=== PATIENT | female | born 1970 | race Caucasian/White ===

== ENCOUNTER 2020-04-07 18:03 | Emergency (ER) | payer SELFPAY ==
[2020-04-07 18:09] VITALS: BP 137/96; PULSE 103; RESP 18; TEMP 36.7; O2SAT 99; BMI 39.4
--- NOTE | 2020-04-07 18:09 | XRR_ITS ---
PROCEDURE INFORMATION: Exam: XR Chest, 2 Views Exam date and time: 04/07/2020 6:24 PM Age: 50 years old Clinical indication: Left-sided chest pain; Additional info: Cp TECHNIQUE: Imaging protocol: XR of the chest Views: 2 views. COMPARISON: CR Chest 1 [place] [id number] 01/07/2019 11:32 AM FINDINGS: The lungs are clear of infiltrate. There are no pleural effusions or pneumothorax. The heart size and pulmonary vascularity are normal. XR/XR chest 2V* [id number] IMPRESSION: No active disease.
--- NOTE | 2020-04-07 18:09 | ECG_ITS ---
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 Measurements Intervals [place] Rate: 96 P: 27 [place]: 149 QRS: -6 QRSD: 74 T: 29 QT: 317 QTc: 402 Interpretive Statements SINUS RHYTHM LOW QRS VOLTAGE IN PRECORDIAL LEADS [QRS DEFLECTION < 1.0 mV IN CHEST LEADS] PATTERN CONSISTENT WITH PULMONARY DISEASE Compared to ECG 01/07/2019 14:02:21 No significant changes Electronically Signed On 04-08-2020 10:53:55 CATTLE DIPPER by Kevin Montoya M.D. [id number] f
[2020-04-07 19:03] VITALS: BP 144/94; PULSE 80; RESP 17; O2SAT 98
[2020-04-07 19:24] LABS: Basophils % 0.5 %; Eosinophils # 0.1 10^3/uL (0.0-0.8); Eosinophils % 0.9 %; Hematocrit 43.5 % (37.0-47.0); Hemoglobin 14.3 g/dL (11.5-15.3); Lymphocytes # 1.6 10^3/uL (0.8-4.8); Lymphocytes % 28.3 %; Mean Corpuscular HGB Conc 32.9 g/dL (30.0-36.0); Mean Corpuscular Hemoglobin 29.4 pg (28.0-34.0); Mean Corpuscular Volume 89.5 fL (81-99); Mean Platelet Volume 11.6 fL (7.4-10.4); Monocytes # 0.3 10^3/uL (0.2-0.9); Neutrophils # 3.65 10^3/uL (1.8-7.7); Neutrophils % 65.1 %; Nucleated Red Blood Cells % 0 %; Platelet Count 280 10^3/cmm (130-400); Red Blood Count 4.86 10^6/uL (4.1-5.3); Red Cell Distribution Width 12.4 % (12.1-15.1); White Blood Count 5.6 10^3/uL (4.0-10.0)
[2020-04-07 19:39] LABS: Alanine Aminotransferase 24 U/L (0-33); Albumin Level 4.2 g/dL (3.5-5.2); Alkaline Phosphatase 95 IU/L (35-105); Anion Gap 13.9 (5-19); Aspartate Amino Transferase 14 U/L (0-32); Blood Urea Nitrogen 6 mg/dL (6-20); Calcium 9.6 mg/dL (8.5-10.5); Carbon Dioxide 27 mmol/L (22-29); Chloride 102 mmol/L (98-107); Globulin 2.9 g/dL (1.3-4.6); Glomerular Filtration Rate 106.7 mL/min (90-130); Glucose 101 mg/dL (65-115); Osmolality Calculated 286 mOsm/kg (285-295); Potassium 3.9 mmol/L (3.5-5.1); Sodium 139 mmol/L (136-145); Total Bilirubin 0.5 mg/dL (0.15-1.2); Total Protein 7.1 g/dL (6.6-8.7)
[2020-04-07 19:44] LABS: Troponin T (5th) Once 6 ng/L (0-10)
--- NOTE | 2020-04-07 19:46 | W.ED.CHESTPA ---
HPI - Chest Pain General: Chief Complaint: Chest Pain Stated Complaint: poss heart attack Time Seen by Provider: 04/07/20 18:51 History of Present Illness: HPI narrative: 50-year-old female with a history of hypertension. She is currently not taking any antihypertensives. She presents with chest discomfort radiating into her back and her left side for most of the day today. States that she woke up with the pain. Her blood pressure has been high. She states she has a history of pleurisy. No known history of heart disease. She tells me she had a stress test last year. MD complaint: chest pain Pertinent past history: other Onset (ago): hour(s) Timing of current episode: constant Prior episodes: Yes Onset: during rest Pain location: substernal and left chest Pain radiation: back Severity: moderate Quality: heaviness and sharp Relieving factors: nothing Exacerbating factors: nothing Context: non compliance with medication Associated symptoms: Reports nausea; Deny abdominal pain, dyspnea, fever(s), leg edema, palpitations or vomiting Treatment prior to arrival: none Review of Systems Const: Denies: fever(s) Eyes: Denies: change in vision ENMT: Denies: odynophagia, swelling of lips/tongue, bleeding gums or sinus pain Card: Reports: chest pain; Denies: palpitations, irregular heart rhythm, edema or orthopnea Resp: Denies: dyspnea GI: Reports: nausea; Denies: abdominal pain or vomiting : Denies: dysuria or hematuria Musc: Reports: back pain; Denies: neck pain Skin/Breast: Denies: rash or erythema Neuro: Denies: headache(s), vertigo or confusion Psych: Denies: anxiety Physical Exam Const: GENERAL APPEARANCE: well developed ORIENTATION/CONSCIOUSNESS: Yes oriented to person, Yes oriented to place and Yes oriented to time HENMT: COMMON NORMALS: normocephalic, external ears normal and Normal external nose present HEAD & SCALP: normocephalic FACE & SINUS: normal facial exam NOSE: Normal external nose present and No nasal discharge present EXTERNAL EAR: Yes external ears normal Eye: COMMON NORMALS: Equal, round and reactive pupils present, EOMs intact bilaterally and conjunctivae normal EYELID: eyelids normal CONJUNCTIVA: Yes conjunctivae normal PUPIL: Yes Equal, round and reactive pupils present Neck/C-Spine: COMMON NORMALS: full ROM GENERAL: No tracheal deviation CERVICAL SPINE: Yes normal cervical lordosis and No Cervical spine tenderness Chest: COMMONS NORMALS: normal inspection of the chest CHEST: No tenderness Resp: COMMON NORMALS: clear to auscultation bilaterally EFFORT & INSPECTION: No tachypneic, No respiratory distress, No retractions, No uses accessory muscles and No tracheal deviation AUSCULTATION: clear to auscultation bilaterally, no rhonchi, no wheezes and lung sounds not diminished Cardio: COMMON NORMALS: regular rate and regular rhythm RATE: regular rate RHYTHM: regular rhythm HEART SOUNDS: no murmurs PERIPHERAL PULSES: radial pulses present GI: INSPECTION: No abdominal distension AUSCULTATION: No Hyperactive bowel sounds present and No Hypoactive bowel sounds present PALPATION: No Guarding due to palpation present (GI) and No Rigid due to palpation PERCUSSION: no dullness to percussion and no tympanic to percussion Neuro: SENSORIUM/ORIENTATION: Yes oriented to person, Yes oriented to place and Yes oriented to time Psych: COMMON NORMALS: mental status grossly normal Skin: COMMON NORMALS: no rashes or lesions noted GENERAL SKIN EXAM: no rashes or lesions noted Course Vital Signs: Vital signs: Vital Signs Temperature 98.0 F 04/07/20 18:09 Pulse Rate 97 04/07/20 21:10 Respiratory Rate 23 H 04/07/20 21:10 Blood Pressure 143/100 04/07/20 21:10 Pulse Oximetry 98 04/07/20 21:10 MDM - Chest Pain MDM Narrative: Medical decision making narrative: Nonreproducible chest pain radiating into the patient's back. She is hypertensive here, but last blood pressure was 144/90. Chest x-ray is normal EKG shows a normal sinus rhythm with no acute ST changes, rate of 90, normal axis. Troponin is 6. D-dimer and chest x-ray are negative. She will be allowed discharge. We will treat her hypertension. Lab Data: Labs: Lab Results 04/07/20 04/07/20 04/07/20 Range/Units 19:14 19:14 19:14 WBC 5.6 (4.0-10.0) 10^3/ uL RBC 4.86 (4.1-5.3) 10^6/u L Hgb 14.3 (11.5-15.3) g/dL Hct 43.5 (37.0-47.0) % MCV 89.5 (81-99) fL MCH 29.4 (28.0-34.0) pg MCHC 32.9 (30.0-36.0) g/dL RDW 12.4 (12.1-15.1) % Plt Count 280 (130-400) 10^3/c mm MPV 11.6 H (7.4-10.4) fL Neut % (Auto) 65.1 % Lymph % (Auto) 28.3 % [place] % (Auto) 5.0 % Eos % (Auto) 0.9 % Baso % (Auto) 0.5 % Neut # (Auto) 3.65 (1.8-7.7) 10^3/u L Lymph # (Auto) 1.6 (0.8-4.8) 10^3/u L [place] # (Auto) 0.3 (0.2-0.9) 10^3/u L Eos # (Auto) 0.1 (0.0-0.8) 10^3/u L Baso # (Auto) 0.0 (0.0-0.1) 10^3/u L Nucleated RBC % (a uto) 0 % Nucleated RBCs # 0.0 /100WBC D-Dimer (0-0.59) ug/mIFE U Sodium 139 (136-145) mmol/L Potassium 3.9 (3.5-5.1) mmol/L Chloride 102 (98-107) mmol/L Carbon Dioxide 27 (22-29) mmol/L Anion Gap 13.9 (5-19) BUN 6 (6-20) mg/dL Creatinine 0.6 (0.5-0.9) mg/dL GFR Calculation 106.7 (90-130) mL/min Glucose 101 (65-115) mg/dL Calculated Osmolal ity 286 (285-295) mOsm/k g Calcium 9.6 (8.5-10.5) mg/dL Total Bilirubin 0.5 (0.15-1.2) mg/dL AST 14 (0-32) U/L ALT 24 (0-33) U/L Alkaline Phosphata se 95 (35-105) IU/L Troponin T Gen 5 n g/L 6 (0-10) ng/L Total Protein 7.1 (6.6-8.7) g/dL Albumin 4.2 (3.5-5.2) g/dL Globulin 2.9 (1.3-4.6) g/dL 04/07/20 Range/Units 19:14 WBC (4.0-10.0) 10^3/ uL RBC (4.1-5.3) 10^6/u L Hgb (11.5-15.3) g/dL Hct (37.0-47.0) % MCV (81-99) fL MCH (28.0-34.0) pg MCHC (30.0-36.0) g/dL RDW (12.1-15.1) % Plt Count (130-400) 10^3/c mm MPV (7.4-10.4) fL Neut % (Auto) % Lymph % (Auto) % [place] % (Auto) % Eos % (Auto) % Baso % (Auto) % Neut # (Auto) (1.8-7.7) 10^3/u L Lymph # (Auto) (0.8-4.8) 10^3/u L [place] # (Auto) (0.2-0.9) 10^3/u L Eos # (Auto) (0.0-0.8) 10^3/u L Baso # (Auto) (0.0-0.1) 10^3/u L Nucleated RBC % (a uto) % Nucleated RBCs # /100WBC D-Dimer 0.31 (0-0.59) ug/mIFE U Sodium (136-145) mmol/L Potassium (3.5-5.1) mmol/L Chloride (98-107) mmol/L Carbon Dioxide (22-29) mmol/L Anion Gap (5-19) BUN (6-20) mg/dL Creatinine (0.5-0.9) mg/dL GFR Calculation (90-130) mL/min Glucose (65-115) mg/dL Calculated Osmolal ity (285-295) mOsm/k g Calcium (8.5-10.5) mg/dL Total Bilirubin (0.15-1.2) mg/dL AST (0-32) U/L ALT (0-33) U/L Alkaline Phosphata se (35-105) IU/L Troponin T Gen 5 n g/L (0-10) ng/L Total Protein (6.6-8.7) g/dL Albumin (3.5-5.2) g/dL Globulin (1.3-4.6) g/dL Discharge Plan Discharge Patient Disposition: Home Clinical Impression: Chest pain Qualifiers: Chest pain type: unspecified Qualified Code(s): R07.9 - Chest pain, unspecified Hypertension Qualifiers: Hypertension type: essential hypertension Qualified Code(s): I10 - Essential (primary) hypertension Condition: Stable Prescriptions: New metoprolol tartrate 25 mg tablet 25 mg PO Q12H Qty: 60 RF: 0 ketorolac 10 mg tablet 10 mg PO TID PRN (Reason: pain) 4 Days Qty: 10 RF: 0 Discharge Orders: Discharge ED (Routine); Ordered 04/07/20 Ordered By: Yogi Shaffer Referrals: Janee Finch FNP [Primary Care Provider] - 4-7 days Discharge Diet: Advance as tolerated Discharge Activity: Increase activity as tolerated Patient Instructions: Chest Pain (ED), Hypertension (ED) Activity Restrictions/Additional Instructions: Return for worsening chest pain despite treatment, shortness of breath, fever, other concerning symptoms. Check your blood pressure twice daily if you can. Write numbers down for a physician. Up with a primary care physician regarding your blood pressure within the next week. You have been prescribed a medication for your blood pressure through the ER. Coding Level of Care Code ED Instrument Setter for Enrike Fwd Exam Comprehensive
[2020-04-07 19:51] LABS: D Dimer 0.31 ug/mIFEU (0-0.59)
[2020-04-07 19:57] VITALS: BP 166/113; PULSE 83; RESP 19; O2SAT 97
--- NOTE | 2020-04-07 19:59 | PC.NURSE ---
Patient refused Morphine and Zofran
[2020-04-07] MEDS: ketorolac 30 mg/mL INJ IVP (21:03)
[2020-04-07] MEDS: metoprolol tartrate 25 mg Tablet PO (21:03)
[2020-04-07 21:10] VITALS: BP 143/100; PULSE 97; RESP 23; O2SAT 98
== END 2020-04-07 21:10 | disposition home or self-care (01) ==
PROVIDERS: Nurse Practitioner Family; Emergency Provider Emergency Medicine; PCP Nurse Practitioner
DX: R07.9 Chest pain, unspecified (principal); I10 Essential (primary) hypertension
CPT/HCPCS: 12345; 71046; 80053; 84484; 85025; 85378; 93005; 96374; 96375; 99282; 99283; J1885

== ENCOUNTER 2020-09-25 10:00 | Emergency (ER) | payer SELFPAY ==
[2020-09-25 10:07] VITALS: BP 163/108; PULSE 94; RESP 14; TEMP 37.1; O2SAT 98; BMI 39.4
--- NOTE | 2020-09-25 10:14 | XR_ITS ---
WS: [id number] XR chest 1V portable [id number] REASON FOR EXAM: cp FINDINGS: Mild tortuosity of the thoracic aorta without aneurysmal dilatation. Normal heart size. No active pulmonary parenchymal or pleural disease. The bony thorax is intact. XR/XR chest 1V portable [id number] IMPRESSION: No acute abnormality.
--- NOTE | 2020-09-25 10:15 | ECG_ITS ---
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 Measurements Intervals [place] Rate: 86 P: 20 [place]: 158 QRS: -12 QRSD: 88 T: 8 QT: 355 QTc: 425 Interpretive Statements SINUS RHYTHM LOW QRS VOLTAGE IN PRECORDIAL LEADS [QRS DEFLECTION < 1.0 mV IN CHEST LEADS] Compared to ECG 04/07/2020 18:08:45 No significant changes Electronically Signed On 09-25-2020 13:45:28 CDT by Tracie Hathaway M.D. [id number]
[2020-09-25 10:20] VITALS: BP 146/102; PULSE 90; TEMP 37.1; O2SAT 99
--- NOTE | 2020-09-25 10:28 | W.ED.CHESTPA ---
HPI - Chest Pain General: Chief Complaint: Chest Pain Stated Complaint: CHEST PAIN Time Seen by Provider: 09/25/20 10:02 History of Present Illness: HPI narrative: Arrived via ambulance with complaint of left-sided chest pain. Patient states his chest pain has been intermittent over the last few weeks has not seen a primary because she has no insurance. She said she went to bed feeling good last night and she developed pain upper abdomen area went into her neck she said her throat feels numb to some degree. Denies shortness of breath diaphoresis nausea or vomiting. MD complaint: chest discomfort Onset (ago): month(s) Timing of current episode: episodic Prior episodes: Yes Pain location: left chest Quality: tightness, aching and burning Relieving factors: nothing Exacerbating factors: nothing Associated symptoms: Reports no associated symptoms; Deny abdominal pain, dyspnea, fever(s), nausea or vomiting Review of Systems Const: Denies: fever(s), chills or body aches Eyes: Denies: change in vision or blurry vision ENMT: Reports: throat pain (Pain versus numbness); Denies: nasal congestion Card: Reports: chest pain; Denies: dyspnea on exertion Resp: Denies: dyspnea, productive cough or non-productive cough GI: Denies: abdominal pain, nausea or vomiting Musc: Denies: extremity pain Skin/Breast: Denies: rash Neuro: Denies: headache(s) Psych: Denies: anxiety or depression [place]/Lymph: Denies: easy bruising Physical Exam Const: COMMON NORMALS: no acute distress, average body habitus and patient oriented x3 HENMT: COMMON NORMALS: normocephalic HEAD & SCALP: normal to inspection and normocephalic FACE & SINUS: normal facial exam Eye: COMMON NORMALS: conjunctivae normal GENERAL EYE: appearance normal, both eyes and all related structures CONJUNCTIVA: Yes conjunctivae normal Neck/C-Spine: COMMON NORMALS: no JVD Chest: COMMONS NORMALS: normal inspection of the chest Resp: COMMON NORMALS: normal respiratory effort and clear to auscultation bilaterally AUSCULTATION: clear to auscultation bilaterally Cardio: COMMON NORMALS: no JVD, regular rate and regular rhythm RATE: regular rate RHYTHM: regular rhythm GI: COMMON NORMALS: Normal to inspection, nondistended, normoactive bowel sounds present Extremity: COMMON NORMALS: normal to inspection and full ROM Neuro: COMMON NORMALS: patient oriented x3 Course Vital Signs: Vital signs: Vital Signs Temperature 98.8 F 09/25/20 10:20 Pulse Rate 89 09/25/20 11:43 Respiratory Rate 19 H 09/25/20 11:43 Blood Pressure 139/102 09/25/20 11:43 Pulse Oximetry 99 09/25/20 11:43 MDM - Chest Pain MDM Narrative: Medical decision making narrative: Laboratory EKG and radiology negative for cardiac cause of pain. Atypical chest pain possibly esophageal spasm based on patient's symptoms and clinical exam patient started Nexium with follow-up primary care provider wants to get established. Lab Data: Labs: Lab Results 09/25/20 09/25/20 09/25/20 Range/Units 12:12 12:12 12:12 WBC 6.6 (4.0-10.0) 10^3/ uL RBC 4.52 (4.1-5.3) 10^6/u L Hgb 13.5 (11.5-15.3) g/dL Hct 41.7 (37.0-47.0) % MCV 92.3 (81-99) fL MCH 29.9 (28.0-34.0) pg MCHC 32.4 (30.0-36.0) g/dL RDW 12.3 (12.1-15.1) % Plt Count 266 (130-400) 10^3/c mm MPV 11.4 H (7.4-10.4) fL Neut % (Auto) 70.7 % Lymph % (Auto) 23.9 % [place] % (Auto) 3.8 % Eos % (Auto) 0.9 % Baso % (Auto) 0.5 % Neut # (Auto) 4.67 (1.8-7.7) 10^3/u L Lymph # (Auto) 1.6 (0.8-4.8) 10^3/u L [place] # (Auto) 0.3 (0.2-0.9) 10^3/u L Eos # (Auto) 0.1 (0.0-0.8) 10^3/u L Baso # (Auto) 0.0 (0.0-0.1) 10^3/u L Nucleated RBC % (a uto) 0 % Nucleated RBCs # 0.0 /100WBC PT 13.30 (12.1-14.9) SECO NDS INR 0.99 (0.8-1.2) Sodium 139 (136-145) mmol/L Potassium 4.1 (3.5-5.1) mmol/L Chloride 105 (98-107) mmol/L Carbon Dioxide 26 (22-29) mmol/L Anion Gap 12.1 (5-19) BUN 6 (6-20) mg/dL Creatinine 0.5 (0.5-0.9) mg/dL GFR Calculation 131.7 H (90-130) mL/min Glucose 107 (65-115) mg/dL Calculated Osmolal ity 286 (285-295) mOsm/k g Calcium 8.7 (8.5-10.5) mg/dL Total Bilirubin 0.4 (0.15-1.2) mg/dL AST 11 (0-32) U/L ALT 22 (0-33) U/L Alkaline Phosphata se 88 (35-105) IU/L Troponin T Baselin e (0-10) ng/L Total Protein 7.0 (6.6-8.7) g/dL Albumin 3.7 (3.5-5.2) g/dL Globulin 3.3 (1.3-4.6) g/dL Lipase 32 (13-60) U/L // Range/Units 12:12 WBC (4.0-10.0) 10^3/ uL RBC (4.1-5.3) 10^6/u L Hgb (11.5-15.3) g/dL Hct (37.0-47.0) % MCV (81-99) fL MCH (28.0-34.0) pg MCHC (30.0-36.0) g/dL RDW (12.1-15.1) % Plt Count (130-400) 10^3/c mm MPV (7.4-10.4) fL Neut % (Auto) % Lymph % (Auto) % [place] % (Auto) % Eos % (Auto) % Baso % (Auto) % Neut # (Auto) (1.8-7.7) 10^3/u L Lymph # (Auto) (0.8-4.8) 10^3/u L [place] # (Auto) (0.2-0.9) 10^3/u L Eos # (Auto) (0.0-0.8) 10^3/u L Baso # (Auto) (0.0-0.1) 10^3/u L Nucleated RBC % (a uto) % Nucleated RBCs # /100WBC PT (12.1-14.9) SECO NDS INR (0.8-1.2) Sodium (136-145) mmol/L Potassium (3.5-5.1) mmol/L Chloride (98-107) mmol/L Carbon Dioxide (22-29) mmol/L Anion Gap (5-19) BUN (6-20) mg/dL Creatinine (0.5-0.9) mg/dL GFR Calculation (90-130) mL/min Glucose (65-115) mg/dL Calculated Osmolal ity (285-295) mOsm/k g Calcium (8.5-10.5) mg/dL Total Bilirubin (0.15-1.2) mg/dL AST (0-32) U/L ALT (0-33) U/L Alkaline Phosphata se (35-105) IU/L Troponin T Baselin e 6 (0-10) ng/L Total Protein (6.6-8.7) g/dL Albumin (3.5-5.2) g/dL Globulin (1.3-4.6) g/dL Lipase (13-60) U/L Discharge Plan Discharge Patient Disposition: Home Clinical Impression: Atypical chest pain, Heartburn Condition: Stable Prescriptions: New Nexium 20 mg capsule,delayed release(DR/EC) 20 mg PO DAILY Qty: 10 RF: 0 Discharge Orders: Discharge ED (Routine); Ordered 09/25/20 Ordered By: Reggie Burden Referrals: Janee Finch FNP [Primary Care Provider] - Discharge Diet: As Directed Discharge Activity: Resume usual activity Patient Instructions: Diet for Ulcers and Gastritis (ED), Gastroesophageal Reflux Disease (ED) Activity Restrictions/Additional Instructions: Follow-up with medical provider as directed. Take medications as prescribed. Return to the ER or your medical provider if condition worsens. Please read and understand discharge instructions. If any questions ask please. Coding Level of Care Code ED Quality Control Engineer for Chg Fwd Exam Comprehensive
[2020-09-25 11:43] VITALS: BP 139/102; PULSE 89; RESP 19; O2SAT 99
[2020-09-25 12:23] LABS: Basophils % 0.5 %; Eosinophils # 0.1 10^3/uL (0.0-0.8); Eosinophils % 0.9 %; Hematocrit 41.7 % (37.0-47.0); Hemoglobin 13.5 g/dL (11.5-15.3); Lymphocytes # 1.6 10^3/uL (0.8-4.8); Lymphocytes % 23.9 %; Mean Corpuscular HGB Conc 32.4 g/dL (30.0-36.0); Mean Corpuscular Hemoglobin 29.9 pg (28.0-34.0); Mean Corpuscular Volume 92.3 fL (81-99); Mean Platelet Volume 11.4 fL (7.4-10.4); Monocytes # 0.3 10^3/uL (0.2-0.9); Monocytes % 3.8 %; Neutrophils # 4.67 10^3/uL (1.8-7.7); Neutrophils % 70.7 %; Nucleated Red Blood Cells % 0 %; Platelet Count 266 10^3/cmm (130-400); Red Blood Count 4.52 10^6/uL (4.1-5.3); Red Cell Distribution Width 12.3 % (12.1-15.1); White Blood Count 6.6 10^3/uL (4.0-10.0)
[2020-09-25 12:35] LABS: INR 0.99 (0.8-1.2)
[2020-09-25 12:44] LABS: Troponin(5th) Baseline 6 ng/L (0-10)
[2020-09-25 12:46] LABS: Alanine Aminotransferase 22 U/L (0-33); Albumin Level 3.7 g/dL (3.5-5.2); Alkaline Phosphatase 88 IU/L (35-105); Anion Gap 12.1 (5-19); Aspartate Amino Transferase 11 U/L (0-32); Blood Urea Nitrogen 6 mg/dL (6-20); Calcium 8.7 mg/dL (8.5-10.5); Carbon Dioxide 26 mmol/L (22-29); Chloride 105 mmol/L (98-107); Globulin 3.3 g/dL (1.3-4.6); Glomerular Filtration Rate 131.7 mL/min (90-130); Glucose 107 mg/dL (65-115); Lipase 32 U/L (13-60); Osmolality Calculated 286 mOsm/kg (285-295); Potassium 4.1 mmol/L (3.5-5.1); Sodium 139 mmol/L (136-145); Total Bilirubin 0.4 mg/dL (0.15-1.2)
[2020-09-25 13:42] VITALS: BP 165/127; PULSE 90; RESP 18; O2SAT 95
== END 2020-09-25 13:38 | disposition home or self-care (01) ==
PROVIDERS: Emergency Provider Nurse Practitioner Family; PCP Nurse Practitioner
DX: R07.89 Other chest pain (principal); R12 Heartburn
CPT/HCPCS: 36415; 71045; 80053; 83690; 84484; 85025; 85610; 93005; 99283

== ENCOUNTER 2020-12-21 12:49 | Outpatient (CLI) | payer SELFPAY ==
--- NOTE | 2020-12-21 | US_ITS ---
WS: [id number] ULTRASOUND THYROID TECHNIQUE: Ultrasound of the thyroid. CLINICAL INFORMATION: HTN/THYROID NODULE COMPARISON: Ultrasound November 03, 2018 and 2013 FINDINGS: Thyroid: Right and left thyroid lobes are normal in size and echotexture. Dominant right-sided nodule measures 1.2 x 0.9 x 1.5 cm with a complex heterogeneous solid appearance. Additional small hypoecho ic nodule left thyroid measuring 0.5 x 0.3 x 0.5 CM is also stable. Echogenic nodule along the inferior left thyroid measuring 0.7 x 0.5 x 0.9 cm is stable likely repres enting reactive lymph node. This is unchanged since 2013. Less likely this could represent an atypica l parathyroid adenoma which are typically hypoechoic. Recommend correlation with parathyroid hormone and serum calcium studies Right thyroid lobe: 4.8 cm x 1.5 cm x 1.5 cm Left thyroid lobe: 4.0 cm x 1.5 cm x 1.0 cm. Isthmus: 0.2 mm. Cervical lymphadenopathy: None. US/US thyroid [id number] IMPRESSION: 1. Heterogeneous solid right thyroid nodule measures1.2 x 0.9 x 1.5 CM stable since 2018. 2. Small hypoechoic left thyroid nodule in the mid thyroid is stable. 3. Echogenic nodule along the inferior left thyroid is stable since 2018 likel y reactive lymph node versus less likely atypical parathyroid adenoma. Recommen d correlation with laboratory studies. This is unchanged since 2013 4. No other significant interval changes.
== END 2020-12-21 12:50 | disposition home or self-care (01) ==
LOC: RAD 12:52
PROVIDERS: PCP Family Medicine; Visit Provider Family Medicine
DX: I10 Essential (primary) hypertension (principal); E04.2 Nontoxic multinodular goiter
CPT/HCPCS: 76536

== ENCOUNTER → 2021-07-12 10:47 | Outpatient (BNVA) | payer SELFPAY | PROVIDERS: Visit Provider Family Medicine | DX: E04.1 Nontoxic single thyroid nodule (principal); I10 Essential (primary) hypertension; R53.83 Other fatigue; Z76.89 Persons encountering health services in other specified circumstances; R30.0 Dysuria | CPT/HCPCS: 80053; 80061; 83036; 84439; 84443; 85025 ==

== ENCOUNTER → 2021-08-13 11:28 | Outpatient (BNVA) | payer SELFPAY | PROVIDERS: Visit Provider Family Medicine | DX: E87.6 Hypokalemia (principal); I10 Essential (primary) hypertension | CPT/HCPCS: 80048 ==

== ENCOUNTER 2021-12-23 03:42 | Emergency (ER) | payer SELFPAY ==
[2021-12-23 03:52] VITALS: BP 127/92; PULSE 87; RESP 18; TEMP 36.7; O2SAT 98; BMI 38.4
[2021-12-23] MEDS: ketorolac 30 mg/mL INJ 15 MG IVP (05:04)
[2021-12-23 05:05] LABS: Basophils % 0.4 %; Eosinophils # 0.1 10^3/uL (0.0-0.8); Eosinophils % 1.5 %; Hematocrit 40.3 % (37.0-47.0); Hemoglobin 13.5 g/dL (11.5-15.3); Lymphocytes # 2.7 10^3/uL (0.8-4.8); Lymphocytes % 39.4 %; Mean Corpuscular HGB Conc 33.5 g/dL (30.0-36.0); Mean Corpuscular Hemoglobin 29.8 pg (28.0-34.0); Mean Platelet Volume 12.2 fL (7.4-10.4); Monocytes # 0.4 10^3/uL (0.2-0.9); Monocytes % 5.8 %; Neutrophils # 3.62 10^3/uL (1.8-7.7); Neutrophils % 52.6 %; Nucleated Red Blood Cells % 0 %; Platelet Count 269 10^3/cmm (130-400); Red Blood Count 4.53 10^6/uL (4.1-5.3); Red Cell Distribution Width 12.5 % (12.1-15.1); White Blood Count 6.9 10^3/uL (4.0-10.0)
--- NOTE | 2021-12-23 05:08 | ECG_ITS ---
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 Measurements Intervals [place] Rate: 71 P: 46 [place]: 178 QRS: -8 QRSD: 81 T: 28 QT: 378 QTc: 411 Interpretive Statements SINUS RHYTHM LOW QRS VOLTAGE IN PRECORDIAL LEADS [QRS DEFLECTION < 1.0 mV IN CHEST LEADS] Compared to ECG 09/25/2020 10:22:53 No significant changes Electronically Signed On 12-23-2021 22:08:12 CDT by Tracie Hathaway M.D. [id number]
[2021-12-23 05:11] VITALS: BP 121/79; PULSE 74; RESP 16; O2SAT 98
[2021-12-23 05:23] LABS: D Dimer 0.46 ug/mIFEU (0-0.59)
[2021-12-23 05:27] LABS: Troponin T (5th) Once 6 ng/L (0-10)
[2021-12-23 05:33] LABS: Alanine Aminotransferase 29 U/L (0-33); Albumin Level 3.9 g/dL (3.5-5.2); Alkaline Phosphatase 67 U/L (35-105); Anion Gap 14.9 (5-19); Aspartate Amino Transferase 18 U/L (0-32); Blood Urea Nitrogen 9 mg/dL (6-20); Calcium 9.1 mg/dL (8.5-10.5); Carbon Dioxide 28 mmol/L (22-29); Chloride 100 mmol/L (98-107); Creatinine Clr Calc Pharmacy 131.5344; Globulin 3.2 g/dL (1.3-4.6); Glomerular Filtration Rate 106.3 mL/min (90-130); Glucose 130 mg/dL (65-115); Osmolality Calculated 290 mOsm/kg (285-295); Sodium 140 mmol/L (136-145); Total Bilirubin 0.6 mg/dL (0.15-1.2); Total Protein 7.1 g/dL (6.6-8.7)
[2021-12-23 05:39] LABS: Potassium 2.9 mmol/L (3.5-5.1)
[2021-12-23] MEDS: TRAMadol 50 mg Tablet PO (06:04)
[2021-12-23] MEDS: potassium chloride ER 20 mEq Tablet 40 MEQ PO (06:04)
[2021-12-23 06:05] VITALS: BP 114/94; PULSE 71; RESP 16; O2SAT 98
--- NOTE | 2021-12-24 21:49 | ED_ITS ---
HPI - Extremity Problem General: Chief complaint: Extremity Problem,Nontraumatic Stated complaint: right arm pain Time Seen by Provider: 12/23/21 04:31 Source: patient History of Present Illness: 51 year old female complaining of right arm pain, radiating from her elbow to her axilla. she states that it was hard to get her blood pressure to read on her home machine, and it worried her, so she came to the emergency department. MD Complaint: extremity pain Onset (ago): hour(s) Pain Consistency: constant Location: right Quality: aching and constant Radiation: proximal Relieving factors: nothing Exacerbating factors: nothing Associated symptoms: Reports other; Deny chest pain, fever(s) or rash Review of Systems Const: Denies: fever(s) Eyes: Denies: change in vision Card: Denies: chest pain or palpitations Resp: Denies: dyspnea, productive cough, non-productive cough or wheezing GI: Denies: abdominal pain, nausea, vomiting, diarrhea or hematochezia : Denies: difficulty voiding Skin/Breast: Denies: rash Neuro: Denies: headache(s), weakness in extremities, dizziness or confusion PFS ED PFSH: Social History Smoking and tobacco status: never smoked Alcohol intake: never Physical Exam Const: COMMON NORMALS: no acute distress GENERAL APPEARANCE: cooperative; not ill appearing and not frail appearing HENMT: COMMON NORMALS: normocephalic, atraumatic and Normal external nose present HEAD & SCALP: normocephalic and atraumatic FACE & SINUS: normal facial exam and face symmetric NOSE: Normal external nose present Eye: COMMON NORMALS: Equal, round and reactive pupils present and EOMs intact bilaterally PUPIL: Yes Equal, round and reactive pupils present Neck/C-Spine: GENERAL: Yes trachea midline Chest: CHEST: Yes Symmetrical chest wall rise Resp: COMMON NORMALS: normal respiratory effort, No retractions, No use of accessory muscles and clear to auscultation bilaterally AUSCULTATION: clear to auscultation bilaterally Cardio: COMMON NORMALS: regular rate and regular rhythm RATE: regular rate RHYTHM: regular rhythm GI: COMMON NORMALS: Normal to inspection, nondistended, normoactive bowel sounds present Extremity: COMMON NORMALS: no pedal edema Neuro: NANDO COMA SCALE: document GCS findings Willard coma scale eye opening: Spontaneous Willard coma scale verbal response: Orientated Nando coma scale motor response: Obey commands Willard coma scale total score: 15 SENSORY EXAM: Yes extremities (intact) Psych: COMMON NORMALS: speech normal SPEECH: Yes normal speech Skin: COMMON NORMALS: no rashes or lesions noted GENERAL SKIN EXAM: no rashes or lesions noted Course Vital Signs: Vital signs: Vital Signs Temperature 98.1 F 12/23/21 03:52 Pulse Rate 71 12/23/21 06:05 Respiratory Rate 16 12/23/21 06:05 Blood Pressure 114/94 12/23/21 06:05 Pulse Oximetry 98 12/23/21 06:05 Oxygen Delivery Me thod 12/23/21 05:11 MDM - Extremity (Nontraumatic) Medical Decision Making Pain is not reproducible by palpation. there is no edema of the RUE. ekg shows no acute st changes. troponin is normal. potasssium is 2.9 and is repleated. she is improved. she'll be allowed discharge. bp is not remarkable here. Lab Data : 12/23/21 04:58 12/23/21 04:58 Laboratory Results WBC 6.9 10^3/uL (4.0-10.0) 12/23/21 04:58 RBC 4.53 10^6/uL (4.1-5.3) 12/23/21 04:58 Hgb 13.5 g/dL (11.5-15.3) 12/23/21 04:58 Hct 40.3 % (37.0-47.0) 12/23/21 04:58 MCV 89.0 fl (81-99) 12/23/21 04:58 MCH 29.8 pg (28.0-34.0) 12/23/21 04:58 MCHC 33.5 g/dL (30.0-36.0) 12/23/21 04:58 RDW 12.5 % (12.1-15.1) 12/23/21 04:58 Plt Count 269 10^3/cmm (130-400) 12/23/21 04:58 MPV 12.2 fL (7.4-10.4) H 12/23/21 04:58 Neut % (Auto) 52.6 % 12/23/21 04:58 Lymph % (Auto) 39.4 % 12/23/21 04:58 Pacific % (Auto) 5.8 % 12/23/21 04:58 Eos % (Auto) 1.5 % 12/23/21 04:58 Baso % (Auto) 0.4 % 12/23/21 04:58 Neut # (Auto) 3.62 10^3/uL (1.8-7.7) 12/23/21 04:58 Lymph # (Auto) 2.7 10^3/uL (0.8-4.8) 12/23/21 04:58 Pacific # (Auto) 0.4 10^3/uL (0.2-0.9) 12/23/21 04:58 Eos # (Auto) 0.1 10^3/uL (0.0-0.8) 12/23/21 04:58 Baso # (Auto) 0.0 10^3/uL (0.0-0.1) 12/23/21 04:58 Nucleated RBC % (auto) 0 % 12/23/21 04:58 Nucleated RBCs # 0.0 /100WBC 12/23/21 04:58 D-Dimer 0.46 ug/mIFEU (0-0.59) 12/23/21 04:58 Sodium 140 mmol/L (136-145) 12/23/21 04:58 Potassium 2.9 mmol/L (3.5-5.1) L 12/23/21 04:58 Chloride 100 mmol/L (98-107) 12/23/21 04:58 Carbon Dioxide 28 mmol/L (22-29) 12/23/21 04:58 Anion Gap 14.9 (5-19) 12/23/21 04:58 BUN 9 mg/dL (6-20) 12/23/21 04:58 Creatinine 0.6 mg/dL (0.5-0.9) 12/23/21 04:58 GFR Calculation 106.3 mL/min (90-130) 12/23/21 04:58 Glucose 130 mg/dL (65-115) H 12/23/21 04:58 Calculated Osmolality 290 mOsm/kg (285-295) 12/23/21 04:58 Calcium 9.1 mg/dL (8.5-10.5) 12/23/21 04:58 Total Bilirubin 0.6 mg/dL (0.15-1.2) 12/23/21 04:58 AST 18 U/L (0-32) 12/23/21 04:58 ALT 29 U/L (0-33) 12/23/21 04:58 Alkaline Phosphatase 67 U/L (35-105) 12/23/21 04:58 Troponin T Gen 5 ng/L 6 ng/L (0-10) 12/23/21 04:58 Total Protein 7.1 g/dL (6.6-8.7) 12/23/21 04:58 Albumin 3.9 g/dL (3.5-5.2) 12/23/21 04:58 Globulin 3.2 g/dL (1.3-4.6) 12/23/21 04:58 Discharge Plan Discharge Patient Disposition: Home Clinical Impression: Neuritis Condition: Stable Prescriptions: New ketorolac 10 mg tablet 10 mg PO TID PRN (Reason: pain) Qty: 10 0RF No Action hydrochlorothiazide 25 mg tablet 25 mg PO DAILY potassium chloride 10 mEq tablet extended release 10 meq PO DAILY Qty: 30 2RF amlodipine 5 mg tablet 5 mg PO DAILY Qty: 30 2RF Discharge Orders: Discharge ED (Routine); Ordered 12/23/21 Ordered By: Yoig Shaffer Referrals: Rafael Hernandez DO [Primary Care Provider] - 1-3 days Activity Restrictions/Additional Instructions: You appear to have an irritated nerve in your arm. Take the medication prescribed scheduled for the next 2 days, then as needed. Ice and elevation may help as well. Return for fever, shortness of breath, chest discomfort, worsening pain despite treatment, or any other concerning symptoms. Coding Level of Care Code ED [employer] for [employer] Cano
== END 2021-12-23 06:08 | disposition home or self-care (01) ==
PROVIDERS: Emergency Provider Emergency Medicine; PCP Family Medicine
DX: M79.2 Neuralgia and neuritis, unspecified (principal)
CPT/HCPCS: 80053; 84484; 85025; 85378; 93005; 96374; 99284; J1885